=== PATIENT | female | born 2005 | race Caucasian/White ===

== ENCOUNTER 2024-03-13 21:40 | Emergency (ER) | payer MEDICAID ==
[~2024-03-13] VITALS: Ht 167.6 cm; Wt 63.6 kg
[~2024-03-13 21:40] MED LIST: NO HOME MEDICATIONS
[2024-03-13 23:03] LABS: COLLECTION METHOD CLEAN CATCH
[2024-03-13 23:12] LABS: URINE APPEARANCE CLEAR (CLEAR/HAZY); URINE BLOOD 3+ (NEGATIVE); URINE COLOR YELLOW (YELLOW); URINE GLUCOSE NEGATIVE (NEGATIVE); URINE KETONE NEGATIVE (NEGATIVE); URINE NITRATE NEGATIVE (NEGATIVE); URINE PROTEIN(semi-quant) TRACE (NEGATIVE); URINE UROBILINOGEN 0.2 E.U/dL (0.2-1.0)
[2024-03-13 23:41] LABS: BASO % 0.5 % (0.0-2.0); EOS # 0.4 K/mm3 (0.0-0.7); EOS % 5.3 % (0.0-4.0); GRAN % 48.3 % (42.2-75.2); HEMATOCRIT 40.7 % (35.0-45.0); HEMOGLOBIN 13.4 g/dl (12.0-15.0); LYMPH # 3.1 K/mm3 (1.2-3.4); LYMPH % 36.7 % (20.0-51.0); MEAN CELL VOLUME 80 fl (80.0-95.0); MEAN CORPUSCULAR HEMOGLOBIN 26 pg (26-32); MEAN CORPUSCULAR HGB CONC 33 g/dl (33.0-37.0); MEAN PLATELET VOLUME 10.8 fl (7.4-10.4); MONO # 0.8 K/mm3 (0.1-0.6); MONO % 9.1 % (1.7-9.3); PLATELET COUNT 230 K/mm3 (130-400); REDCELL DISTRIBUTION WIDTH-CV 12.9 % (11.5-14.5)
[2024-03-13 23:56] LABS: ALBUMIN 4.5 g/dL (3.5-5.0); BILIRUBIN,TOTAL 0.6 mg/dL (0.2-1.2); CALCIUM 8.9 mg/dL (8.4-10.2); CREATININE, serum 0.75 mg/dL (0.57-1.11); POTASSIUM 3.6 mEq/L (3.5-4.5); TOTAL PROTEIN 7.6 g/dl (6.2-8.1)
[2024-03-14 01:02] VITALS: BP 125/85; PULSE 78; TEMP 97.6
== END 2024-03-14 01:02 | disposition home or self-care (01) ==
LOC: COL.ER 21:40
PROVIDERS: Nurse Practitioner
DX: K59.00 Constipation, unspecified (principal)